=== PATIENT | female | born 2000 | race Caucasian/White ===

== ENCOUNTER 2021-02-24 13:07 | Emergency (ER) | payer BC, SELFPAY ==
--- NOTE | ~2021-02-24 | XR_ITS ---
EXAMINATION: XR elbow LT 2V DATE: 02/24/2021 13:49 INDICATION: Left elbow injury. TECHNIQUE: 2 views of left elbow were obtained. COMPARISON: None. FINDINGS: Bone alignment is normal. No fracture. Joint spaces are well maintained. There is no elbow joint effusion. IMPRESSION: 1. Normal left elbow. Reviewed, dictated and finalized at location A. IMPRESSION: 1. Normal left elbow.
--- NOTE | ~2021-02-24 | XR_ITS ---
EXAMINATION: XR shoulder LT min 2V DATE: 02/24/2021 13:49 INDICATION: Left shoulder pain. TECHNIQUE: 4 views of left shoulder were obtained. COMPARISON: None. FINDINGS: Bone alignment is normal. No fracture. Joint spaces are well maintained. IMPRESSION: 1. Normal left shoulder. Reviewed, dictated and finalized at location A. IMPRESSION: 1. Normal left shoulder.
[2021-02-24 13:35] VITALS: BP 132/94; PULSE 73; RESP 18; TEMP 36.6; O2SAT 100
--- NOTE | 2021-02-24 13:59 | ED.UPPEXIN ---
HPI - Extremity Injury (Upper) General Chief Complaint: Extremity Injury, Upper Stated Complaint: ? L shoulder and elbow dislocation Time Seen by Provider: 02/24/21 13:48 Source: RN notes reviewed History of Present Illness HPI narrative: Patient presents to emergency department from work for left shoulder and elbow pain. Patient states she was lifting a ladder with her left arm when she felt a pop in her left shoulder as well as her left elbow. She states that she has dislocated left elbow before but never dislocated her left shoulder but was afraid she had dislocated both of them she notes some pain to the left anterior superior shoulder and the left posterior elbow she has full range of motion of both she denies any other trauma or injury Related Data Home Medications Medication Instructions Recorded Confirmed escitalopram oxalate [Lexapro] 20 mg PO DAILY 02/24/21 02/24/21 trazodone 50 mg PO HS 02/24/21 02/24/21 Allergies Allergy/AdvReac Type Severity Reaction Status Date / Time acetaminophen [From [place]] AdvReac Nausea and Verified 02/24/21 13:51 Vomiting hydrocodone [From [place]] AdvReac Nausea and Verified 02/24/21 13:51 Vomiting Review of Systems Review of Systems: Narrative: Gen.: Denies fevers or chills Musculoskeletal: See HPI Neuro: Denies numbness, tingling, weakness Skin: Denies rash Endo: Denies DM PMFSH Past Medical History Medical History (Updated 02/24/21 @ 14:02 by Emmett Bernardo DO) Patient denies significant medical history Social History Social History (Updated 02/24/21 @ 14:00 by Emmett Bernardo DO) Smoking status: Never smoker Exam Narrative: Exam Narrative: APPEARANCE: No acute distress, nontoxic, resting in bed Eyes: EOMI HEENT: Normocephalic, atraumatic, RESPIRATORY: No respiratory distress clear to station bilaterally CV: Regular rate and rhythm without murmur MUSCULOSKELETAl: Tender palpation of the left anterior superior shoulder full range of motion of the arm with pain with flexion abduction greater than 90 degrees, tender palpation of left posterior elbow full flexion-extension with pain with full extension left wrist is nontender palpation radial pulse 2+ neurovascular intact NEURO: Awake and alert. Following commands, speech normal, no focal deficits SKIN:: Warm, dry. Normal Color no rash or lesions Course Course Emergency Course: Discussed with patient results of workup and diagnosis. Discussed need for follow-up with primary care, proper use of medication, and reasons to return to the emergency department. Patient understands and agrees to current treatment plan Vital Signs Vital signs: Vital Signs Temperature 97.8 F 02/24/21 13:35 Pulse Rate 73 02/24/21 13:35 Respiratory Rate 18 02/24/21 13:35 Blood Pressure 132/94 H 02/24/21 13:35 Pulse Oximetry 100 02/24/21 13:35 Temperature 97.8 F 02/24/21 13:35 Pulse Rate 73 02/24/21 13:35 Respiratory Rate 18 02/24/21 13:35 Blood Pressure 132/94 H 02/24/21 13:35 Pulse Oximetry 100 02/24/21 13:35 MDM - Extremity Injury (Upper) Imaging Data Radiologist's impression: ITS Impressions Elbow X-Ray 02/24/21 13:53 IMPRESSION: 1. Normal left elbow. Shoulder X-Ray 02/24/21 13:54 IMPRESSION: 1. Normal left shoulder. Discharge Plan Discharge Clinical Impression: Left shoulder strain, Sprain of elbow, left Patient Disposition: Home, Self-Care Condition: Stable Instructions: Antibiotic Form, Elbow Sprain (ED), Shoulder Pain (ED) Additional Instructions: Return for increasing pain numbness or tingling in the extremities or any other symptoms of concern Prescriptions: New ibuprofen [IBU] 600 mg tablet 600 mg PO Q6H PRN (Reason: pain) Qty: 20 RF: 0 No Action trazodone 50 mg Tablet 50 mg PO HS RF: 0 escitalopram oxalate [Lexapro] 20 mg Tablet 20 mg PO DAILY RF: 0 Follow-up/Referrals: Matthew Mo MD [Physic
--- NOTE | 2021-02-24 14:06 | PC.NURSE ---
Verbal order received from EDP for 600mg ibuprofen. Orders are not crossing over to MAR. 600mg tablet administered at this time.
[2021-02-24] MEDS: IBUPROFEN 600 MG TABLET (14:13)
[2021-02-24 14:46] VITALS: BP 135/94; PULSE 63; RESP 18; O2SAT 98
== END 2021-02-24 14:48 | disposition home or self-care (01) ==
PROVIDERS: Emergency Provider Emergency Medicine
DX: S43.402A Unspecified sprain of left shoulder joint, initial encounter (principal); S53.402A Unspecified sprain of left elbow, initial encounter; X50.0XXA Overexertion from strenuous movement or load, initial encounter
CPT/HCPCS: 73030; 73070; 99284; A4565; A9270